=== PATIENT | male | born 2000 | race Caucasian/White ===

== ENCOUNTER 2019-10-28 23:15 | Emergency (ER) | payer OTHER, SELFPAY ==
[2019-10-28 23:20] VITALS: BP 126/78; PULSE 74; RESP 19; TEMP 36.1; O2SAT 100
--- NOTE | 2019-10-28 23:48 | ED.ALLEREA ---
HPI - Allergic Reaction General Chief complaint: Allergic Reaction Stated complaint: BEE STING TO TOE Time Seen by Provider: 10/28/19 23:33 Source: RN notes reviewed History of Present Illness HPI narrative: Patient presents emergency department from home for a bee sting. Patient states he was stung on the plantar aspect of the left third toe yesterday. He states that since that time he has had pain and swelling in the distal aspect of the foot at the bases of the second third and fourth toe. States that it is tender to palpation. He states that the stinger was removed he denies any other injuries. He did state he took Benadryl approximately 3 hours ago. Denies any fevers or chills numbness or tingling or any other symptoms Related Data Allergies Allergy/AdvReac Type Severity Reaction Status Date / Time No Known Allergies Allergy Unverified 11/12/16 11:06 Review of Systems Review of Systems: Narrative: Gen.: Denies fevers or chills Musculoskeletal: See HPI Neuro: Denies numbness, tingling, weakness Skin: See HPI Endo: Denies DM PMFSH Past Medical History Medical History (Updated 10/28/19 @ 23:50 by Negro Castelan DO) Patient denies significant medical history Social History Social History (Updated 10/28/19 @ 23:49 by Negro Castelan DO) Smoking status: Never smoker Gender identity (if verbalized by the patient): Male Exam Narrative: Exam Narrative: APPEARANCE: No acute distress, nontoxic, resting in bed Eyes: EOMI HEENT: Normocephalic, atraumatic, RESPIRATORY: No respiratory distress MUSCULOSKELETAl: There is mild swelling and erythema over the distal left foot at the base of the second third and fourth toe with mild swelling of the third toe and an area consistent with bee sting no drainage or signs of cellulitis dorsalis pedis pulse 2+, neurovascular intact NEURO: Awake and alert. Following commands, speech normal, no focal deficits SKIN:: Warm, dry. Normal Color no rash or lesions Course Course Emergency Course: Discussed with patient results of workup and diagnosis. Discussed need for follow-up with primary care, proper use of medication, and reasons to return to the emergency department. Patient understands and agrees to current treatment plan Vital Signs Vital signs: Vital Signs Temperature 97.0 F L 10/28/19 23:20 Pulse Rate 74 10/28/19 23:20 Respiratory Rate 19 10/28/19 23:20 Blood Pressure 126/78 10/28/19 23:20 Pulse Oximetry 100 10/28/19 23:20 Temperature 97.0 F L 10/28/19 23:20 Pulse Rate 74 10/28/19 23:20 Respiratory Rate 19 10/28/19 23:20 Blood Pressure 126/78 10/28/19 23:20 Pulse Oximetry 100 10/28/19 23:20 Discharge Plan Discharge Clinical Impression: Bee sting Patient Disposition: Home, Self-Care Condition: Stable Instructions: Antibiotic Form, Insect Bite or Sting (ED) Additional Instructions: Return for increasing pain, swelling or any other symptoms of concern. Keep the foot elevated at rest Prescriptions: New prednisone 20 mg tablet 20 mg PO BID Qty: 10 RF: 0 loratadine 10 mg capsule 10 mg PO DAILY Qty: 5 RF: 0 Follow-up/Referrals: Jocelyn Steve MD [Primary Care Provider] - Stand Alone Forms: Work/School Release IP Time of Disposition: 23:50
[2019-10-29 00:04] VITALS: BP 110/78; PULSE 91; RESP 19; TEMP 36.6; O2SAT 100
[2019-10-29] MEDS: predniSONE 20 MG TABLET 60 MG PO (00:04)
== END 2019-10-29 00:05 | disposition home or self-care (01) ==
LOC: ANHED 23:55
PROVIDERS: Emergency Provider Emergency Medicine
DX: T63.441A Toxic effect of venom of bees, accidental (unintentional), initial encounter (principal)
CPT/HCPCS: 99283; J7512